=== PATIENT | female | born 2000 | race Two or more races ===

== ENCOUNTER 2024-04-15 06:07 | Emergency (ER) | payer OTHER ==
[~2024-04-15] VITALS: Ht 157.5 cm; Wt 90.3 kg
[2024-04-15] MEDS ORDERED: PRENATALES (06:16)
[2024-04-15] MEDS ORDERED: LABETALOL HCL100 MG PO (06:16)
[2024-04-15 08:01] LABS: HEMATOCRIT 41.1 % (36.0-45.00); MEAN CELL VOLUME 88.5 fL (80.00-100.00); MEAN CORPUSCULAR HEMOGLOBIN 30.1 pg (27.00-32.0); PLATELET COUNT 133 K/uL (150-450); RED BLOOD COUNT 4.64 M/uL (4.00-6.00); RED CELL DISTRIBUTION WIDTH 13.2 % (11.5-14.5)
[2024-04-15 08:29] LABS: PARTIAL THROMBOPLASTIN TIME 29.6 SECONDS (22.0-34.0); PROTHROMBIN TIME 10.9 SECONDS (9.0-11.5)
[2024-04-15 09:02] LABS: CALCIUM 9.1 mg/dL (8.5-10.1); CREATININE SERUM 0.54 mg/dL (0.55-1.02); GFR 136.47; POTASSIUM 3.92 mEq/L (3.5-5.1)
[2024-04-15 09:51] LABS: PH,URINE 6.5 (5.0-8.0); URINE APPEARANCE Clear; URINE BILIRRUBIN Negative (NEGATIVE); URINE BLOOD Moderate; URINE COLOR Yellow; URINE GLUCOSE Negative (NEGATIVE); URINE KETONE Negative (NEGATIVE); URINE LEUKOCYTE Trace; URINE NITRATE Negative; URINE PROTEIN Negative (NEGATIVE)
[2024-04-15 09:55] LABS: URINE BACTERIA 1493.1 uL (0.0-1933); URINE EPITHELIAL CELLS 21.6 uL (0.0-38.8); URINE RBC 36.8 uL (0.0-20.8)
[2024-04-15 09:56] LABS: URINE CAST 0.14 uL (0.0-1.40)
== END 2024-04-15 11:27 | disposition home or self-care (01) ==
LOC: ER 06:10
PROVIDERS: General Practice
DX: O20.8 Other hemorrhage in early pregnancy (principal); Z3A.10 10 weeks gestation of pregnancy; I10 Essential (primary) hypertension; Z88.6 Allergy status to analgesic agent

== ENCOUNTER 2024-04-30 03:02 | Emergency (ER) | payer OTHER ==
[~2024-04-30] VITALS: Ht 157.5 cm; Wt 88.5 kg
[~2024-04-30 03:02] MED LIST: LABETALOL HCL100 MG PO; PRENATALES
[2024-04-30] MEDS ORDERED: 0.9 % SODIUM CHLORIDE 1,000 ML IV STA (03:40)
[2024-04-30] MEDS ORDERED: FAMOtidine 10 MG/ML (4ML VIAL) IV PUSH STA (03:41)
[2024-04-30] MEDS ORDERED: ONDANSETRON HCL 2 MG/ML VIAL IV STA (03:41)
[2024-04-30] MEDS ORDERED: ONDANSETRON HCL 2 MG/ML VIAL ONE (03:55)
[2024-04-30] MEDS ORDERED: FAMOTIDINE/PF 20 MG/2 ML VIAL ONE (03:55)
[2024-04-30 04:20] LABS: HEMATOCRIT 39.3 % (36.0-45.00); HEMOGLOBIN 13.5 g/dL (12.0-15.00); MEAN CELL VOLUME 87.8 fL (80.00-100.00); MEAN CORPUSCULAR HEMOGLOBIN 30.3 pg (27.00-32.0); MEAN CORPUSCULAR HGB CONC 34.5 g/dl (32.0-36.0); PLATELET COUNT 136 K/uL (150-450); RED BLOOD COUNT 4.47 M/uL (4.00-6.00); RED CELL DISTRIBUTION WIDTH 13.9 % (11.5-14.5)
[2024-04-30 04:38] LABS: PARTIAL THROMBOPLASTIN TIME 28.5 SECONDS (22.0-34.0); PROTHROMBIN TIME 10.9 SECONDS (9.0-11.5)
[2024-04-30 05:09] LABS: ALBUMIN 3.4 gm/dL (3.4-5.0); BILIRUBIN TOTAL 1.64 mg/dL (0.3-1.2); CALCIUM 8.8 mg/dL (8.5-10.1); CREATININE SERUM 0.6 mg/dL (0.55-1.02); GFR 120.84; GLOBULINA 3.3 G/DL (2.4-3.5); POTASSIUM 4.3 mEq/L (3.5-5.1); TOTAL PROTEIN 6.7 gm/dL (6.4-8.2)
== END 2024-04-30 07:04 | disposition home or self-care (01) ==
LOC: ER 03:05
DX: O20.8 Other hemorrhage in early pregnancy (principal); Z3A.12 12 weeks gestation of pregnancy; Z88.6 Allergy status to analgesic agent

== ENCOUNTER 2024-09-06 18:47 | Outpatient (CLI) | payer OTHER ==
[~2024-09-06] VITALS: Ht 157.5 cm; Wt 88.0 kg
[2024-09-06 19:20] VITALS: BP 130/85
[2024-09-06] MEDS ORDERED: PRENATA CHEWAB1 EACH PO (20:30)
[2024-09-06] MEDS ORDERED: RINGERS SOLUTION,LACTATED 1,000 ML IV SCH (20:30)
[2024-09-06 21:13] LABS: BASO % 0.2 % (0.1-1.2); EOS # 0.05 (0.04-0.54); EOS % 0.3 % (0.7-7.0); HEMATOCRIT 37.8 % (34.1-44.9); HEMOGLOBIN 12.8 g/dL (11.2-15.7); LYMPH # 2.66 (1.18-3.74); LYMPH % 18.1 % (19.3-53.1); MEAN CORPUSCULAR HEMOGLOBIN 30.3 pg (25.6-32.2); MONO # 0.64 (0.24-0.82); MONO % 4.3 % (4.7-12.5); NEUT # 11.25 (1.56-6.13); NEUT % 76.4 % (34.0-71.1); PLATELET COUNT 152 K/uL (163-369); RED BLOOD COUNT 4.22 M/uL (3.93-5.22); RED CELL DISTRIBUTION WIDTH 14.9 % (11.6-14.4)
[2024-09-06 21:15] LABS: PH,URINE 6.5 (5.0-8.0); URINE APPEARANCE Clear; URINE BILIRRUBIN Negative (NEGATIVE); URINE BLOOD Negative; URINE COLOR Yellow; URINE GLUCOSE Negative (NEGATIVE); URINE KETONE 15 (NEGATIVE); URINE LEUKOCYTE Negative; URINE NITRATE Negative; URINE PROTEIN Negative (NEGATIVE); URINE UROBILINOGEN 0.2 E.U./dl
[2024-09-06 21:16] LABS: URINE BACTERIA 570.3 uL (0.0-1933); URINE EPITHELIAL CELLS 6.3 uL (0.0-38.8); URINE RBC 10.6 uL (0.0-20.8); URINE WBC 13.6 uL (0.0-23.2)
[2024-09-06 21:42] LABS: INR 0.96; PARTIAL THROMBOPLASTIN TIME 28.3 SECONDS (22.0-34.0); PROTHROMBIN TIME 10.5 SECONDS (9.0-11.5)
[2024-09-06 21:47] LABS: ALBUMIN 3.2 gm/dL (3.4-5.0); BILIRUBIN TOTAL 1.84 mg/dL (0.3-1.2); CALCIUM 9.3 mg/dL (8.5-10.1); CREATININE SERUM 0.4 mg/dL (0.55-1.02); GFR 192.94; GLOBULINA 3.6 G/DL (2.4-3.5); TOTAL PROTEIN 6.8 gm/dL (6.4-8.2)
[2024-09-06 23:35] VITALS: BP 133/86
[2024-09-07 04:28] VITALS: BP 133/82
[2024-09-07 07:22] VITALS: BP 119/81
[2024-09-07 11:35] VITALS: BP 145/88
[2024-09-07 13:21] LABS: BASO % 0.2 % (0.1-1.2); EOS # 0.04 (0.04-0.54); EOS % 0.3 % (0.7-7.0); HEMATOCRIT 35.3 % (34.1-44.9); MEAN CORPUSCULAR HEMOGLOBIN 29.9 pg (25.6-32.2); MONO # 0.47 (0.24-0.82); MONO % 3.6 % (4.7-12.5); NEUT # 10.74 (1.56-6.13); NEUT % 82.2 % (34.0-71.1); PLATELET COUNT 142 K/uL (163-369); RED BLOOD COUNT 4.01 M/uL (3.93-5.22); RED CELL DISTRIBUTION WIDTH 14.6 % (11.6-14.4)
[2024-09-07 13:52] LABS: ALBUMIN 2.9 gm/dL (3.4-5.0); BILIRUBIN TOTAL 1.87 mg/dL (0.3-1.2); CALCIUM 8.8 mg/dL (8.5-10.1); CREATININE SERUM 0.55 mg/dL (0.55-1.02); GFR 133.61; GLOBULINA 3.3 G/DL (2.4-3.5); POTASSIUM 3.76 mEq/L (3.5-5.1); TOTAL PROTEIN 6.2 gm/dL (6.4-8.2)
[2024-09-07 15:10] VITALS: BP 140/84
[2024-09-07 20:00] LABS: URINE PROT QUANT 24HR 8.2 MG/DL
[2024-09-07 20:02] LABS: URINE PROT QUANT 24 HR 237.8 MG/24HR (42-225)
[2024-09-07 20:11] VITALS: BP 140/84
== END 2024-09-07 20:11 | disposition home or self-care (01) ==
LOC: OBS/DEL 18:47
PROVIDERS: ATTEND Specialist
DX: O13.3 Gestational [pregnancy-induced] hypertension without significant proteinuria, third trimester (principal); Z3A.31 31 weeks gestation of pregnancy

== ENCOUNTER 2024-10-09 12:18 | Inpatient (IN) | payer OTHER ==
[~2024-10-09] VITALS: Ht 157.5 cm; Wt 87.1 kg
[~2024-10-09 12:18] MED LIST changes: +PRENATA CHEWAB1 EACH PO
[2024-10-14] VITALS (15 sets, daily range): BP systolic 122–196; BP diastolic 76–120; O2SAT 98–100
[2024-10-14] MEDS ORDERED: RINGERS SOLUTION,LACTATED 1,000 ML IV SCH (06:15)
[2024-10-14] MEDS ORDERED: MAGNESIUM SULFATE IN WATER 4 GM/100 ML PIGGYBACK IV ONE (06:50)
[2024-10-14] MEDS ORDERED: MAGNESIUM SULFATE IN WATER 500 ML IV SCH (07:00)
[2024-10-14 07:10] LABS: BASO % 0.1 % (0.1-1.2); EOS # 0.12 (0.04-0.54); EOS % 0.9 % (0.7-7.0); LYMPH # 2.22 (1.18-3.74); LYMPH % 16.6 % (19.3-53.1); MEAN PLATELET VOLUME 11.50 fl (9.4-12.4); MONO # 0.75 (0.24-0.82); MONO % 5.6 % (4.7-12.5); NEUT # 10.17 (1.56-6.13); NEUT % 76.1 % (34.0-71.1); RED CELL DISTRIBUTION WIDTH 14.6 % (11.6-14.4)
[2024-10-14] MEDS ORDERED: hydrALAZINE HCL 20 MG VIAL IV PRN (07:15)
[2024-10-14 07:18] LABS: URINE APPEARANCE Clear; URINE BILIRRUBIN Negative (NEGATIVE); URINE BLOOD Negative; URINE COLOR Yellow; URINE GLUCOSE Negative (NEGATIVE); URINE KETONE Negative (NEGATIVE); URINE LEUKOCYTE Small; URINE NITRATE Negative; URINE PROTEIN Negative (NEGATIVE); URINE UROBILINOGEN 1.0 E.U./dl
[2024-10-14 07:22] LABS: URINE BACTERIA 1805.8 uL (0.0-1933); URINE EPITHELIAL CELLS 47.5 uL (0.0-38.8); URINE RBC 8.6 uL (0.0-20.8); URINE WBC 48.7 uL (0.0-23.2)
[2024-10-14 07:25] LABS: URINE CAST 0.58 uL (0.0-1.40)
[2024-10-14 07:49] LABS: INR 0.95
[2024-10-14] MEDS ORDERED: LABETALOL HCL 100 MG/20 ML ML IV PUSH ONE ×3 (07:50→08:40)
[2024-10-14 08:07] LABS: ALT/SGPT 13.0 U/L (12-78); AST/SGOT 12.0 U/L (15-37); BILIRUBIN TOTAL 1.46 mg/dL (0.3-1.2); BUN CREA RATIO 14.0 (7.0-25.0); CREATININE SERUM 0.49 mg/dL (0.55-1.02); GFR 152.66; GLOBULINA 3.4 G/DL (2.4-3.5); GLUCOSE FASTING 75.0 mg/dL (65-100); OSMOLALITY SERUM 278.0 MOSM/KG (275-295)
[2024-10-14] MEDS ORDERED: DESMOPRESSIN ACETATE 40 MCG/10 ML ML IV NR (10:15)
[2024-10-14] MEDS ORDERED: ERYTHROMYCIN BASE OPHT 1GM EACH TUBE OP ONE (11:30)
[2024-10-14] MEDS ORDERED: LABETALOL HCL 100 MG/20 ML ML IV PUSH NR (11:30)
[2024-10-14] MEDS ORDERED: OXYTOCIN 10 UNITS/ML VIAL IV ONE (11:30)
[2024-10-14] MEDS ORDERED: CEFAZOLIN SODIUM 1,000 MG VIAL IV ONE (12:30)
[2024-10-14] MEDS ORDERED: MORPHINE SULFATE 4 MG/ML CARTRIDGE IV SCH (13:15)
[2024-10-14] MEDS ORDERED: MORPHINE SULFATE 4 MG/ML VIAL IV ONE ×2 (13:30→14:00)
[2024-10-14] MEDS ORDERED: MAGNESIUM SULFATE IN WATER 0.04 GM/ML IV.SOLN IV SCH (13:30)
[2024-10-14 14:51] LABS: URINE APPEARANCE Clear; URINE BILIRRUBIN Negative (NEGATIVE); URINE BLOOD Large; URINE COLOR Yellow; URINE GLUCOSE Negative (NEGATIVE); URINE KETONE Negative (NEGATIVE); URINE LEUKOCYTE Negative; URINE NITRATE Negative; URINE PROTEIN Negative (NEGATIVE); URINE UROBILINOGEN 1.0 E.U./dl
[2024-10-14 14:52] LABS: URINE BACTERIA 19.1 uL (0.0-1933); URINE EPITHELIAL CELLS 1.9 uL (0.0-38.8); URINE RBC 284.6 uL (0.0-20.8); URINE WBC 6.2 uL (0.0-23.2)
[2024-10-14 14:53] LABS: BASO % 0.2 % (0.1-1.2); EOS # 0.02 (0.04-0.54); EOS % 0.1 % (0.7-7.0); LYMPH # 1.10 (1.18-3.74); LYMPH % 6.9 % (19.3-53.1); MEAN PLATELET VOLUME 11.70 fl (9.4-12.4); MONO # 0.48 (0.24-0.82); MONO % 3.0 % (4.7-12.5); NEUT # 14.12 (1.56-6.13); NEUT % 88.2 % (34.0-71.1); RED CELL DISTRIBUTION WIDTH 14.8 % (11.6-14.4)
[2024-10-14 15:38] LABS: ALT/SGPT 11.0 U/L (12-78); AST/SGOT 14.0 U/L (15-37); BILIRUBIN TOTAL 1.62 mg/dL (0.3-1.2); BUN CREA RATIO 12.0 (7.0-25.0); CREATININE SERUM 0.51 mg/dL (0.55-1.02); GFR 145.77; GLOBULINA 3.1 G/DL (2.4-3.5); GLUCOSE FASTING 105.0 mg/dL (65-100); OSMOLALITY SERUM 276.0 MOSM/KG (275-295)
[2024-10-14 15:39] LABS: URINE CAST 0.43 uL (0.0-1.40)
[2024-10-14 19:36] LABS: BASO % 0.1 % (0.1-1.2); EOS # 0.01 (0.04-0.54); EOS % 0.1 % (0.7-7.0); LYMPH # 1.42 (1.18-3.74); LYMPH % 8.9 % (19.3-53.1); MEAN PLATELET VOLUME 11.40 fl (9.4-12.4); MONO # 0.83 (0.24-0.82); MONO % 5.2 % (4.7-12.5); NEUT # 13.66 (1.56-6.13); NEUT % 85.2 % (34.0-71.1); RED CELL DISTRIBUTION WIDTH 14.9 % (11.6-14.4)
[2024-10-15] VITALS (7 sets, daily range): BP systolic 125–156; BP diastolic 76–98; O2SAT 97–100
[2024-10-15] MEDS ORDERED: ACETAMINOPHEN 325 MG TABLET PO SCH (07:00)
[2024-10-15] MEDS ORDERED: OxyCODONE HCL 5 MG TABLET (ROXICODONE) PO SCH (07:00)
[2024-10-15] MEDS ORDERED: DOCUSATE SODIUM 100MG CAP PO SCH (09:00)
[2024-10-15] MEDS ORDERED: SIMETHICONE 125 MG CAPSULE PO SCH (09:00)
[2024-10-15] MEDS ORDERED: LABETALOL HCL 100 MG TABLET PO SCH (11:53)
[2024-10-16 00:21] VITALS: BP 146/86
[2024-10-16 05:25] VITALS: BP 140/90
[2024-10-16 09:29] VITALS: BP 130/90; O2SAT 98
[2024-10-16 12:52] LABS: BASO % 0.2 % (0.1-1.2); EOS # 0.16 (0.04-0.54); EOS % 1.0 % (0.7-7.0); LYMPH # 1.38 (1.18-3.74); LYMPH % 8.8 % (19.3-53.1); MEAN PLATELET VOLUME 11.70 fl (9.4-12.4); MONO # 0.62 (0.24-0.82); MONO % 4.0 % (4.7-12.5); NEUT # 13.36 (1.56-6.13); NEUT % 85.5 % (34.0-71.1); RED CELL DISTRIBUTION WIDTH 15.3 % (11.6-14.4)
[2024-10-16 13:15] VITALS: BP 135/82; O2SAT 99
[2024-10-16 19:43] VITALS: BP 140/80
[2024-10-16] MEDS ORDERED: LABETALOL HCL 100 MG TABLET PO SCH (21:00)
[2024-10-17] VITALS: BP 140/70
[2024-10-17 08:59] VITALS: BP 150/90; O2SAT 97
[2024-10-17 18:00] VITALS: BP 145/80
[2024-10-18 01:58] VITALS: BP 140/85
[2024-10-18 08:00] VITALS: BP 160/85
[2024-10-18 09:00] VITALS: BP 140/80
== END 2024-10-18 19:23 | disposition home or self-care (01) | DRG 787 ==
LOC: LDR 10-14 05:56 → O/R 10-14 12:13 → LDR 10-14 12:16 → OB/GYN 10-15 14:09
PROVIDERS: Obstetrics & Gynecology; ADMIT Specialist; ATTEND Specialist
PROC: 4A1HXCZ Monitoring of Products of Conception, Cardiac Rate, External Approach (ICD-10-PCS; 2024-10-14)
PROC: 10D00Z1 Extraction of Products of Conception, Low, Open Approach (ICD-10-PCS; principal; 2024-10-14 12:00)
DX: O13.4 Gestational [pregnancy-induced] hypertension without significant proteinuria, complicating childbirth (principal); D68.01 Von Willebrand disease, type 1; O99.12 Other diseases of the blood and blood-forming organs and certain disorders involving the immune mechanism complicating childbirth; O24.32 Unspecified pre-existing diabetes mellitus in childbirth; O60.14X0 Preterm labor third trimester with preterm delivery third trimester, not applicable or unspecified; E11.8 Type 2 diabetes mellitus with unspecified complications; O43.123 Velamentous insertion of umbilical cord, third trimester; O36.5130 Maternal care for known or suspected placental insufficiency, third trimester, not applicable or unspecified; O36.5930 Maternal care for other known or suspected poor fetal growth, third trimester, not applicable or unspecified; Z3A.36 36 weeks gestation of pregnancy; Z37.0 Single live birth; Z79.4 Long term (current) use of insulin